=== PATIENT | female | born 1935 | race Caucasian/White ===

== ENCOUNTER → 2020-07-21 08:23 | Outpatient (BNVA) | payer MEDICARE, OTHER, SELFPAY | PROVIDERS: Family Provider Family Medicine; PCP Family Medicine; Visit Provider Specialist | DX: G30.1 Alzheimer's disease with late onset (principal); F02.80 Dementia in other diseases classified elsewhere, unspecified severity, without behavioral disturbance, psychotic disturbance, mood disturbance, and anxiety | CPT/HCPCS: 99212 ==

== ENCOUNTER → 2020-11-04 09:35 | Outpatient (BNVA) | payer MEDICARE, OTHER, SELFPAY | PROVIDERS: Family Provider Family Medicine; PCP Family Medicine; Visit Provider Specialist | DX: G30.1 Alzheimer's disease with late onset (principal); F02.80 Dementia in other diseases classified elsewhere, unspecified severity, without behavioral disturbance, psychotic disturbance, mood disturbance, and anxiety | CPT/HCPCS: 99212; 99213 ==

== ENCOUNTER → 2021-06-24 09:56 | Outpatient (BNVA) | payer MEDICARE, OTHER, SELFPAY | PROVIDERS: Family Provider Family Medicine; PCP Family Medicine; Visit Provider Specialist | DX: G30.1 Alzheimer's disease with late onset (principal); F02.80 Dementia in other diseases classified elsewhere, unspecified severity, without behavioral disturbance, psychotic disturbance, mood disturbance, and anxiety | CPT/HCPCS: 99212; 99213 ==

== ENCOUNTER → 2021-07-15 11:40 | Outpatient (BNVA) | payer MEDICARE, OTHER, SELFPAY | PROVIDERS: Family Provider Family Medicine; PCP Family Medicine; Visit Provider Family Medicine | DX: Z00.00 Encounter for general adult medical examination without abnormal findings (principal); E78.00 Pure hypercholesterolemia, unspecified; G30.1 Alzheimer's disease with late onset; F02.80 Dementia in other diseases classified elsewhere, unspecified severity, without behavioral disturbance, psychotic disturbance, mood disturbance, and anxiety; I10 Essential (primary) hypertension; Z68.21 Body mass index [BMI] 21.0-21.9, adult; Z71.89 Other specified counseling | CPT/HCPCS: 80053; 80061; 85025 ==

== ENCOUNTER → 2021-10-07 09:00 | Outpatient (BNVA) | payer MEDICARE, OTHER, SELFPAY | PROVIDERS: Family Provider Family Medicine; PCP Family Medicine; Visit Provider Specialist | DX: G30.1 Alzheimer's disease with late onset (principal); F02.80 Dementia in other diseases classified elsewhere, unspecified severity, without behavioral disturbance, psychotic disturbance, mood disturbance, and anxiety | CPT/HCPCS: 99212; 99214 ==

== ENCOUNTER → 2022-01-20 09:43 | Outpatient (BNVA) | payer MEDICARE, OTHER, SELFPAY | PROVIDERS: Family Provider Family Medicine; PCP Family Medicine; Visit Provider Specialist | DX: G30.9 Alzheimer's disease, unspecified (principal); F02.81 Dementia in other diseases classified elsewhere, unspecified severity, with behavioral disturbance; F09 Unspecified mental disorder due to known physiological condition | CPT/HCPCS: 99212; 99214 ==

== ENCOUNTER → 2022-05-10 09:40 | Outpatient (BNVA) | payer MEDICARE, OTHER, SELFPAY | PROVIDERS: Family Provider Family Medicine; PCP Family Medicine; Visit Provider Specialist | DX: G30.9 Alzheimer's disease, unspecified (principal); F02.81 Dementia in other diseases classified elsewhere, unspecified severity, with behavioral disturbance; F09 Unspecified mental disorder due to known physiological condition | CPT/HCPCS: 99212; 99214 ==

== ENCOUNTER → 2022-07-11 12:46 | Outpatient (BNVA) | payer MEDICARE, OTHER, SELFPAY | PROVIDERS: Family Provider Family Medicine; PCP Family Medicine; Visit Provider Family Medicine | DX: G30.9 Alzheimer's disease, unspecified (principal); F02.81 Dementia in other diseases classified elsewhere, unspecified severity, with behavioral disturbance; E78.00 Pure hypercholesterolemia, unspecified; I10 Essential (primary) hypertension; Z00.00 Encounter for general adult medical examination without abnormal findings; R73.9 Hyperglycemia, unspecified | CPT/HCPCS: 80053; 80061; 84443; 85025 ==

== ENCOUNTER → 2022-07-12 11:14 | Outpatient (BNVA) | payer MEDICARE, OTHER, SELFPAY | PROVIDERS: Family Provider Family Medicine; PCP Family Medicine; Visit Provider Family Medicine | DX: G30.9 Alzheimer's disease, unspecified (principal); F02.81 Dementia in other diseases classified elsewhere, unspecified severity, with behavioral disturbance; E78.00 Pure hypercholesterolemia, unspecified; I10 Essential (primary) hypertension; Z00.00 Encounter for general adult medical examination without abnormal findings; R73.9 Hyperglycemia, unspecified | CPT/HCPCS: 83036 ==

== ENCOUNTER → 2022-09-05 09:27 | Outpatient (BNVA) | payer MEDICARE, OTHER, SELFPAY | PROVIDERS: Family Provider Family Medicine; PCP Family Medicine; Visit Provider Specialist | DX: G30.9 Alzheimer's disease, unspecified (principal); F02.818 Dementia in other diseases classified elsewhere, unspecified severity, with other behavioral disturbance | CPT/HCPCS: 99213 ==

== ENCOUNTER 2023-01-27 17:35 | Emergency (ER) | payer MEDICARE, OTHER, MEDICAID, SELFPAY ==
[2023-01-27 17:36] VITALS: BP 118/63; PULSE 76; RESP 18; TEMP 36.4; O2SAT 92
--- NOTE | 2023-01-27 17:37 | XRR_ITS ---
PROCEDURE INFORMATION: Exam: XR Chest Exam date and time: 01/27/2023 6:00 PM Age: 87 years old Clinical indication: Dyspnea; Prior surgery; Additional info: Dyspnea/cough TECHNIQUE: Imaging protocol: Radiologic exam of the chest. Views: 1 view. COMPARISON: CR XR chest 1V portable [id number] 11/17/2019 9:42 AM FINDINGS: Lungs: Unchanged hyperinflation with mild fibrosis. Pulmonary vascularity is within normal limits. No consolidation. Unchanged calcified granuloma left lower lobe. Pleural spaces: Unremarkable. No pleural effusion. No pneumothorax. Heart/Mediastinum: Borderline cardiomegaly. Sternotomy wires and mediastinal surgical clips are present, consistent with previous coronary arterial bypass grafting. Bones/joints: No acute abnormality. Osteopenia and severe degenerative changes left shoulder and spine are noted. XR/XR chest 1V portable [id number] IMPRESSION: No acute findings.
[2023-01-27 18:00] LABS: Basophils % 0.5 %; Eosinophils # 0.3 10^3/uL (0.0-0.8); Eosinophils % 4.2 %; Hematocrit 31.1 % (37.0-47.0); Hemoglobin 9.4 g/dL (11.5-15.3); Lymphocytes # 1.3 10^3/uL (0.8-4.8); Lymphocytes % 20.4 %; Mean Corpuscular HGB Conc 30.2 g/dL (30.0-36.0); Mean Platelet Volume 11.1 fL (7.4-10.4); Monocytes # 0.5 10^3/uL (0.2-0.9); Monocytes % 7.6 %; Neutrophils # 4.15 10^3/uL (1.8-7.7); Neutrophils % 67.1 %; Nucleated Red Blood Cells % 0 %; Platelet Count 302 10^3/cmm (130-400); Red Blood Count 3.24 10^6/uL (4.1-5.3); Red Cell Distribution Width 14.6 % (12.1-15.1); White Blood Count 6.2 10^3/uL (4.0-10.0)
--- NOTE | 2023-01-27 18:06 | ED_ITS ---
HPI - Syncope General: Chief Complaint: Syncope Stated Complaint: syncope/ams Time Seen by Provider: 01/27/23 17:36 Source: patient and EMS Mode of arrival: EMS Limitations: no limitations History of Present Illness: 87-year-old female who [facility]. She has a history of Alzheimer's dementia she is typically orientated to self she is at her baseline here she is able answer my questions she does not know the year but she is able to tell me her name. She has no complaints denies any pain she had been sitting at the dinner table tonight and had a witnessed syncopal event lasted roughly 15 seconds. Associated symptoms: Deny abdominal pain, fever(s), headache(s) or nausea Review of Systems Const: Denies: fever(s), chills, body aches or change in appetite Eyes: Denies: blurry vision or eye discomfort ENMT: Denies: throat pain or dental pain Card: Reports: syncope Resp: Denies: dyspnea GI: Denies: abdominal pain, nausea, vomiting or diarrhea : Denies: dysuria Musc: Denies: neck pain or back pain Skin/Breast: Denies: rash Neuro: Denies: headache(s) Psych: Denies: depression Mook/Lymph: Denies: easy bruising All/Imm: Denies: urticaria PFSH ED PFSH: Medical History (Updated 01/27/23 @ 19:17 by Lexie Pike MD) Alzheimer's dementia without behavioral disturbance Closed fracture of neck of left humerus Hypercholesteremia Hypertension Renal insufficiency, mild Family History Other Cancer Hypertension Stroke Denies family history of Diabetes CAD (coronary artery disease) Social History Smoking and tobacco status: never smoked Alcohol intake: never Physical Exam Const: COMMON NORMALS: no acute distress and healthy appearing; negative for patient oriented x3 HENMT: COMMON NORMALS: normocephalic and atraumatic HEAD & SCALP: normocephalic and atraumatic Eye: COMMON NORMALS: Equal, round and reactive pupils present and EOMs intact bilaterally PUPIL: Yes Equal, round and reactive pupils present Neck/C-Spine: COMMON NORMALS: full ROM and supple Chest: COMMONS NORMALS: normal inspection of the chest and normal palpation of entire chest wall Resp: COMMON NORMALS: normal respiratory effort, No retractions, No use of accessory muscles and clear to auscultation bilaterally AUSCULTATION: clear to auscultation bilaterally Cardio: COMMON NORMALS: regular rate, regular rhythm and No murmurs present (Cardio) RATE: regular rate RHYTHM: regular rhythm GI: COMMON NORMALS: Normal to inspection, nondistended, normoactive bowel sounds present, Soft to palpation, non-tender and no masses PALPATION: Yes Soft to palpation Extremity: COMMON NORMALS: normal to inspection and full ROM Neuro: COMMON NORMALS: moves all extremities and no focal motor deficits; negative for patient oriented x3 Psych: COMMON NORMALS: mental status grossly normal, Normal thought process present and cooperative THOUGHT PROCESS: Normal thought process present Skin: COMMON NORMALS: no rashes or lesions noted and no wounds GENERAL SKIN EXAM: no rashes or lesions noted Course Vital Signs: Vital signs: Vital Signs Temperature 97.6 F 01/27/23 17:36 Pulse Rate 76 01/27/23 17:36 Respiratory Rate 18 01/27/23 17:36 Blood Pressure 118/63 01/27/23 17:36 Pulse Oximetry 92 01/27/23 17:36 Oxygen Delivery Me thod 01/27/23 17:36 MDM - Syncope Medical Decision Making Patient presents here [facility] she has been at her normal self currently her blood work is normal spoke to daughter at bedside at length she states she is combative and she does not want to get a head CT. I did inform her she could have an intracranial hemorrhage or something serious or life-threatening daughter understands this and she does not feel like she wants to have her have a head CT at this time. She also refused an EKG as she states that she knows she will stay still I informed her we could at least try as cardiac arrhythmia could cause this she refused she states she is 88 demented and does not want to put her through the stress she has been normal here her heart rate on the monitor has been normal we will [facility] the [facility] at [facility] time Lab Data 01/27/23 17:52 01/27/23 17:52 Radiology Impressions Chest X-Ray 01/27/23 17:37 IMPRESSION: No acute findings. Laboratory Results WBC 6.2 10^3/uL (4.0-10.0) 01/27/23 17:52 RBC 3.24 10^6/uL (4.1-5.3) L 01/27/23 17:52 Hgb 9.4 g/dL (11.5-15.3) L 01/27/23 17:52 Hct 31.1 % (37.0-47.0) L 01/27/23 17:52 MCV 96.0 fl (81-99) 01/27/23 17:52 MCH 29.0 pg (28.0-34.0) 01/27/23 17:52 MCHC 30.2 g/dL (30.0-36.0) 01/27/23 17:52 RDW 14.6 % (12.1-15.1) 01/27/23 17:52 Plt Count 302 10^3/cmm (130-400) 01/27/23 17:52 MPV 11.1 fL (7.4-10.4) H 01/27/23 17:52 Neut % (Auto) 67.1 % 01/27/23 17:52 Lymph % (Auto) 20.4 % 01/27/23 17:52 [place] % (Auto) 7.6 % 01/27/23 17:52 Eos % (Auto) 4.2 % 01/27/23 17:52 Baso % (Auto) 0.5 % 01/27/23 17:52 Neut # (Auto) 4.15 10^3/uL (1.8-7.7) 01/27/23 17:52 Lymph # (Auto) 1.3 10^3/uL (0.8-4.8) 01/27/23 17:52 [place] # (Auto) 0.5 10^3/uL (0.2-0.9) 01/27/23 17:52 Eos # (Auto) 0.3 10^3/uL (0.0-0.8) 01/27/23 17:52 Baso # (Auto) 0.0 10^3/uL (0.0-0.1) 01/27/23 17:52 Nucleated RBC % (auto) 0 % 01/27/23 17:52 Nucleated RBCs # 0.0 /100WBC 01/27/23 17:52 Sodium 143 mmol/L (136-145) 01/27/23 17:52 Potassium 3.9 mmol/L (3.5-5.1) 01/27/23 17:52 Chloride 104 mmol/L (98-107) 01/27/23 17:52 Carbon Dioxide 24 mmol/L (22-29) 01/27/23 17:52 Anion Gap 18.9 (5-19) 01/27/23 17:52 BUN 50 mg/dL (8-23) H 01/27/23 17:52 Creatinine 1.8 mg/dL (0.5-0.9) H 01/27/23 17:52 GFR Calculation Not Reportable 01/27/23 17:52 Glucose 165 mg/dL (65-115) H 01/27/23 17:52 Calculated Osmolality 313 mOsm/kg (285-295) H 01/27/23 17:52 Calcium 9.4 mg/dL (8.5-10.5) 01/27/23 17:52 Total Bilirubin 0.3 mg/dL (0.15-1.2) 01/27/23 17:52 AST 20 U/L (0-32) 01/27/23 17:52 ALT 12 U/L (0-33) 01/27/23 17:52 Alkaline Phosphatase 76 U/L (35-105) 01/27/23 17:52 Total Protein 7.0 g/dL (6.6-8.7) 01/27/23 17:52 Albumin 3.7 g/dL (3.5-5.2) 01/27/23 17:52 Globulin 3.3 g/dL (1.3-4.6) 01/27/23 17:52 Discharge Plan Discharge Patient Disposition: Home Clinical Impression: Syncope Condition: Stable Prescriptions: No Action aspirin [Adult Low Dose Aspirin] 81 mg tablet,delayed release (DR/EC) 81 mg PO DAILY cholecalciferol (vitamin D3) 1,000 unit capsule 1,000 unit PO DAILY memantine 10 mg tablet See Rx Instructions .ROUTE .COMPLEX Qty: 7 0RF Dose Instruction: Take 1 tablet by mouth twice daily Rx Instructions: Cut to 1 tab a day for 7 days then stop taking metoprolol tartrate 25 mg tablet 12.5 mg PO BID Qty: 180 3RF hydralazine 50 mg tablet 50 mg PO BID Qty: 180 5RF Rx Instructions: decrease from 1.5 tabs twice daily rosuvastatin 10 mg tablet See Rx Instructions .ROUTE .COMPLEX Qty: 90 3RF Dose Instruction: TAKE 1 TABLET BY MOUTH EVERY DAY Rx Instructions: TAKE 1 TABLET BY MOUTH EVERY DAY quetiapine 25 mg tablet 25 mg PO DAILY Qty: 30 4RF donepezil 10 mg tablet See Rx Instructions .ROUTE .COMPLEX Qty: 30 0RF Dose Instruction: Take 1 tablet by mouth once daily Rx Instructions: Take 1 tablet by mouth once daily mirtazapine 15 mg tablet 15 mg PO DAILY Qty: 20 0RF Multiple Vitamins Tablet 1 tab PO DAILY PreserVision AREDS-2 [id number] Capsule 1 tab PO BID Discharge Orders: Discharge ED (Routine); Ordered 01/27/23 Ordered By: Lexie Pike Referrals: Yohana Jackson MD [Primary Care Provider] - 1-3 days Discharge Diet: Advance as tolerated Discharge Activity: Resume usual activity Patient Instructions: Syncope (ED) Coding Level of Care Code ED [employer] for Eileen Warren
[2023-01-27 18:28] LABS: Alanine Aminotransferase 12 U/L (0-33); Albumin Level 3.7 g/dL (3.5-5.2); Alkaline Phosphatase 76 U/L (35-105); Anion Gap 18.9 (5-19); Aspartate Amino Transferase 20 U/L (0-32); Blood Urea Nitrogen 50 mg/dL (8-23); Calcium 9.4 mg/dL (8.5-10.5); Carbon Dioxide 24 mmol/L (22-29); Chloride 104 mmol/L (98-107); Globulin 3.3 g/dL (1.3-4.6); Glucose 165 mg/dL (65-115); Osmolality Calculated 313 mOsm/kg (285-295); Potassium 3.9 mmol/L (3.5-5.1); Sodium 143 mmol/L (136-145); Total Bilirubin 0.3 mg/dL (0.15-1.2)
--- NOTE | 2023-01-27 19:00 | PC.NURSE ---
Pt resting in bed with eyes closed, respirations even and nonlabored
--- NOTE | 2023-01-27 19:03 | PC.NURSE ---
Pt on bedside monitoring coordinator
[2023-01-27 19:27] VITALS: BP 122/71; PULSE 76; RESP 18; O2SAT 97
== END 2023-01-27 19:29 | disposition home or self-care (01) ==
PROVIDERS: Family Medicine; Emergency Provider Emergency Medicine; PCP Family Medicine
DX: R55 Syncope and collapse (principal); Z79.82 Long term (current) use of aspirin; G30.9 Alzheimer's disease, unspecified; F02.80 Dementia in other diseases classified elsewhere, unspecified severity, without behavioral disturbance, psychotic disturbance, mood disturbance, and anxiety; I10 Essential (primary) hypertension
CPT/HCPCS: 71045; 80053; 85025; 99285

== ENCOUNTER → 2023-03-08 09:26 | Outpatient (BNVA) | payer MEDICARE, OTHER, MEDICAID, SELFPAY | PROVIDERS: PCP Family Medicine; Visit Provider Specialist | DX: G30.9 Alzheimer's disease, unspecified (principal); F02.818 Dementia in other diseases classified elsewhere, unspecified severity, with other behavioral disturbance | CPT/HCPCS: 99213 ==